=== PATIENT | male | born 1980 | race Caucasian/White ===

== ENCOUNTER 2019-03-06 11:31 | Emergency (ER) | payer SELFPAY, OTHER ==
[2019-03-06] MEDS: TETRACAINE 0.5% 4 ML OPH RIGHT EYE (12:23)
[2019-03-06] MEDS: FLUORESCEIN STRIP RIGHT EYE (12:23)
== END 2019-03-06 12:57 | disposition home or self-care (01) ==
LOC: FTE 11:31
DX: L53.8 Other specified erythematous conditions (principal)
CPT/HCPCS: 99283